=== PATIENT | female | born 1955 | race Caucasian/White ===

== ENCOUNTER → 2016-08-30 | Outpatient (CLI) | payer BC ==
--- NOTE | ~2016-08-30 | MY11 ---
[facility] A Service [facility] RADIOLOGY TEXT RESULTS PATIENT: VALE GARCIA LOCATION: [facility] : 53 UNIT #: [id number] AGE: [address]: Erica Rodríguez MD SEX: F ORDER DR: [id number] [address] [address] [id number] O MR#: [id number] Acc #: [id number] NAME: VALE GARCIA : 1955 SEX: F STUDY DATE/TIME: 08/30/2016 10:49 UNIT: [facility] ROOM: STUDY DESCRIPTION: MY Mammogram Screening Dig Yoni Attending Physician: Erica Rodríguez M.D. Referring Physician: Erica Rodríguez M.D. Ordering Physician: Erica Rodríguez M.D. Primary Care Physician: Erica Rodríguez M.D. MEDICAL IMAGING REPORT This report is preliminary unless electronic signature is present EXAM Bilateral digital screening mammogram with CAD. DATE 08/30/2016 HISTORY 61-year-old female with no personal or family history of breast cancer or current complaints. COMPARISON Bilateral screening mammogram 07/23/2014 and 07/10/2013. FINDINGS CC and MLO views were obtained of each breast utilizing digital technique and reviewed with an FDA-approved CAD device. Scattered fibroglandular densities are present bilaterally. No suspicious nodule, architectural distortion, or clustered microcalcification is seen. IMPRESSION BIRADS category 1. Negative screening mammogram. Routine bilateral screening mammogram is recommended in 1 year. Patients over the age of 40 are entered into a reminder system with target due date for the next mammogram. A result letter will also be sent to the patient. BIRADS: 1 Negative Dictated by... [facility] A Service [facility] RADIOLOGY TEXT RESULTS PATIENT: VALE GARCIA LOCATION: [facility] : 53 UNIT #: [id number] AGE: [address]: Erica Rodríguez MD SEX: F ORDER DR: Amanda Beverly M.D. THIS IS AN ELECTRONICALLY VERIFIED REPORT Amanda Beverly M.D. at 08/30/2016 5:06 PM SHAYAN/wade TD: 08/30/2016 12:13 JOB #: [id number] MEDICAL IMAGING REPORT Page 1 of 1 COPY
== END | disposition home or self-care (01) ==
LOC: CWCC 10:28
DX: Z12.31 Encounter for screening mammogram for malignant neoplasm of breast (principal)
CPT/HCPCS: G0202